=== PATIENT | male | born 1995 | race Caucasian/White ===

== ENCOUNTER 2016-12-05 20:53 | Emergency (ER) | payer OTHER ==
[~2016-12-05] VITALS: Ht 195.6 cm; Wt 187.0 kg
[~2016-12-05 20:53] MED LIST: PREDNISONE20 MG PO; PROVENTIL HFA6.7 GM IH; PROVENTIL,2.5 MG/3 M IH; ZYRTEC10 M2 PO
[2016-12-05 21:26] LABS: HEMATOCRIT 52.4 % (38.0-50.0); MCH 28.3 PG (29.0-34.0); MCHC 33.6 G/DL (30.0-36.0); MCV 84.2 FL (86-99); MEAN PLAT.VOLUME 10.6 uM^3 (9.0-12.4); PLATELET COUNT 292 K/uL (156-360); RBC DIS.WIDTH-SD 39.4 % (39-53); RED BLOOD COUNT 6.22 M/uL (4.00-5.50); WHITE BLOOD COUNT 11.7 K/uL (4.1-10.2)
[2016-12-05 21:32] LABS: CHLORIDE 103 mEq/L (99-109); POTASSIUM 4.7 mEq/L (3.7-5.4); SODIUM 143 mEq/L (136-147)
[2016-12-05 21:35] LABS: GLUCOSE 113 mg/dL (70-99)
[2016-12-05 21:36] LABS: ANION GAP 13 MEQ/L (2-14); TOTAL BILIRUBIN 0.8 mg/dL (0.0-1.0)
[2016-12-05 21:37] LABS: SERUM ETHYL ALCOHOL < 10 mg/dL
[2016-12-05 21:38] LABS: ALKALINE PHOSPHATASE 70 IU/L (3-129); GFR ESTIMATE (CALCULATED) > 59 mL/min/
[2016-12-05 21:39] LABS: UREA NITROGEN (BUN) 11 mg/dL (9-23)
[2016-12-06 00:15] VITALS: BP 159/98
== END 2016-12-06 00:41 | disposition home or self-care (01) ==
LOC: EME 20:53
PROVIDERS: Emergency Medicine
DX: F43.20 Adjustment disorder, unspecified (principal); F84.5 Asperger's syndrome; F90.2 Attention-deficit hyperactivity disorder, combined type; J45.909 Unspecified asthma, uncomplicated
CPT/HCPCS: 80053; 81003; 85027; 90837; 99281; 99285; G0480